=== PATIENT | male | born 1950 | race Caucasian/White ===

== ENCOUNTER 2016-09-02 16:09 | Emergency (ER) | payer MEDICARE ==
[~2016-09-02] VITALS: Ht 177.8 cm; Wt 96.4 kg
[~2016-09-02 16:09] MED LIST: ASCO500T8 PO; FLUO20CA25 PO; FLUT16SP2 NS; GABA600T2 PO; HYDR-3825 PO; HYDR25TA4 PO; LISI-567 PO; LOVA10TA PO; METO-274 PO; OMEP-113 PO; ZINC50TA36 PO; [UNRECOGNIZED DRUG - CODE] PO
[2016-09-02 16:51] VITALS: BP 100/62; PULSE 74; RESP 15; O2SAT 98
== END 2016-09-02 18:52 | disposition left against medical advice (07) ==
LOC: SED 16:09
DX: Z53.21 Procedure and treatment not carried out due to patient leaving prior to being seen by health care provider (principal)